=== PATIENT | female | born 1965 | race Caucasian/White ===

== ENCOUNTER 2017-01-20 18:29 | Emergency (ER) | payer OTHER, SELFPAY | END 2017-01-20 20:11 | disposition home or self-care (01) | LOC: ERS 18:29 | DX: B86 Scabies (principal); E66.9 Obesity, unspecified | CPT/HCPCS: 99282 ==

== ENCOUNTER 2019-04-21 19:32 | Inpatient (IN) | payer SELFPAY ==
[2019-04-21] MEDS ORDERED: Acetaminophen 325 MG TAB ONE (20:01)
[2019-04-21] MEDS ORDERED: Bisacodyl 5 MG TAB PO PRN (22:36)
[2019-04-21] MEDS ORDERED: Senokot S 8.6-50 MG TAB PO PRN (22:36)
[2019-04-21 23:40] VITALS: BMI 47.0
[2019-04-21] MEDS: Sodium Chloride 0.9% 1,000 ML IV SCH (23:54)
[2019-04-22] MEDS: Azithromycin 500 MG in Sodium Chloride 0.9% 250 ML 250 ML IVPB SCH ×2 (00:07→22:29)
[2019-04-22] MEDS: cefTRIAXone\\ROCEPHIN 1 GM in Sodium Chloride 0.9% 100 ML IVPB SCH (02:50)
--- NOTE | 2019-04-22 03:10 | HP ---
CHIEF COMPLAINT: Shortness of breath. HISTORY OF PRESENT ILLNESS: The patient is a 54-year-old female with no past medical history except she is significantly obese, who comes in to the hospital with complaints of shortness of breath x1 week. The patient states that last week around Thursday, she did not feel well. Her whole family has been ill. Denies any recent travels. She stated that on Thursday, she did take her grand kids and her son and herself to an Urgent Care, where the children were swabbed and they were positive for metapneumovirus; however, they were not swabbed. The patient was recommended to just do [id number] medications; however, she did not improve, so she came into the hospital for further evaluation. PAST MEDICAL HISTORY: Denies. PAST SURGICAL HISTORY: She has had a cholecystectomy and a hernia repair. FAMILY HISTORY: Father in the age of 60s with heart disease. SOCIAL HISTORY: Denies any alcohol use or any smoking history. No recreational drug use. She is a full code. She lives with her family. REVIEW OF SYSTEMS: All negative except for the ones mentioned above in the HPI. ALLERGIES: SHE IS ALLERGIC TO TRAMADOL. MEDICATIONS: She denies any except for the ones that she has been taking [id number] for the past few days. PHYSICAL EXAMINATION: VITAL SIGNS: As of the following; temperature of 99.8, blood pressure of 115/60, and heart rates in the 99. GENERAL: She is awake, alert, and oriented x3. Does appear in minimal distress. CV: S1 and S2 present. No murmurs, rubs, or gallops. LUNGS: Mild rhonchi heard all over. ABDOMEN: Obese. Bowel sounds present x2. Mild pain upon to her epigastric and her right upper quadrant. EXTREMITIES: No edema. Pedal pulses are present x2. NEUROVASCULAR: There are no focal deficits noted. SKIN: No cuts, lesions, or bruises noted. LABORATORY RESULTS: As of the following; WBCs of 16.1, hemoglobin of 13.7, hematocrit of 43.9, and her platelets are 198. Chemistry; sodium of 134, potassium of 3.8, BUN of 9, and creatinine of 0.84. Her glucose is 244. Her BNP is normal. Her troponin was negative. Her lactic acid initially was 2.9, that improved to 2.0. Her urine indicated no bacteria and no wbc's. She did have a chest x-ray done, that indicated mild infiltrate in the right lung bases. ASSESSMENT AND PLAN: The patient is a 54-year-old female, who presents to the hospital with complaints of shortness of breath. 1. Acute hypoxic respiratory failure. The patient was pretty hypoxic in the ER, her sats went to 86 on room air. She also had a fever of 101 or 102. We will start her on community-acquired pneumonia antibiotics. Her grand kids did test positive for metapneumovirus. She was tested here for influenza and for strep, which both were negative. We will continue supportive care with Andrea alvarado. Also p.hien Nieves for her cough. 2. Leukocytosis, most likely secondary to her underlying pneumonia. 3. Lactic acidosis, resolved. Continue to monitor. 4. Sepsis, ongoing treatment, most likely from her pneumonia. 5. Deep venous thrombosis prophylaxis. Subcu Jeffery. Job ID: [id number]
[2019-04-22] MEDS: Acetaminophen 325 MG TAB PO PRN ×3 (05:47→22:37)
[2019-04-22 06:00] LABS: #Lymphocytes 2.2 thou/uL (1.20-3.40); #Neutrophils 15.7 thou/uL (1.40-6.50); %Eosinophils 0.1 % (0.0-10.0); %Lymphocytes 11.4 % (21.0-51.0); %Monocytes 5.5 % (0.0-10.0); Hemoglobin 11.8 g/dL (12.0-16.0); Mean Corpuscular HGB CONC 34.7 g/dL (32.0-36.0); Mean Corpuscular Hemoglobin 31.1 pg (27.0-31.0); Mean Corpuscular Volume 89.6 fL (78.0-98.0); Mean Platelet Volume 7.8 fL (7.4-10.4); Platelet Count 178 thou/uL (130-400); RBC Distribution Width 12.3 % (11.5-14.5); White Blood Cell (WBC) Count 18.9 thou/uL (4.8-10.8)
[2019-04-22] MEDS ORDERED: Sodium Chloride 0.9% 500 ML IVPB SCH (06:15)
[2019-04-22 06:19] LABS: Anion Gap 12 mmol/L (10-20); BUN (Urea Nitrogen) 6 mg/dL (9.8-20.1); Calc. Creatinine Clearance 175 mL/min (70-130); Calcium 7.7 mg/dL (7.8-10.44); Carbon Dioxide 23 mmol/L (22-29); Chloride 106 mmol/L (98-107); Estimated GFR-MDRD 80; Glucose 151 mg/dL (70-105); Potassium 3.4 mmol/L (3.5-5.1); Sodium 138 mmol/L (136-145)
[2019-04-22] MEDS: Sodium Chloride 0.9% 1,000 ML IV SCH (06:32)
[2019-04-22] MEDS: Enoxaparin Sodium 40 MG/0.4 ML SYRINGE SC SCH (08:49)
[2019-04-22] MEDS: Saccharomyces boulardii 250 MG CAP PO SCH (08:50)
[2019-04-22] MEDS: Famotidine/PF 20 mg/2ml Vial SLOW IVP SCH ×2 (08:51→20:21)
--- NOTE | 2019-04-22 09:46 | PDOC.HOSPP ---
- Subjective Encounter Date: 04/22/19 Encounter Time: 09:46 Subjective: Ms. Jaime was seen today in follow-up of pneumonia. She is still feeling weak, with a cough. She also notes some shortness of breath as well. - Objective Vital Signs & Weight: Vital Signs (12 hours) Temp Pulse Resp BP Pulse Ox 04/22/19 09:12 92 L 04/22/19 08:22 96 19 85 L 04/22/19 08:00 20 L 04/22/19 07:53 98.9 F 99 18 99/57 L 86 L 04/22/19 04:00 100.1 F H 104 H 20 104/65 93 L 04/22/19 00:50 114 H 24 H 04/21/19 23:26 98.6 F 109 H 20 113/75 20 L Weight Weight 282 lb 14.4 oz Result Diagrams: 04/22/19 05:30 04/22/19 05:30 Hospitalist ROS - Medication Medications: Active Medications Generic Name Dose Route Start Last Admin Trade Name Freq PRN Reason Stop Dose Admin Acetaminophen 650 mg 04/21/19 22:36 04/22/19 05:47 Tylenol PO 650 mg Q4H PRN Administration Headache/Fever/Mild Pain (1-3) Albuterol/Ipratropium 3 ml 04/22/19 01:00 04/22/19 08:22 Duoneb NEB 3 ml [id number] LETI Administration Enoxaparin Sodium 40 mg 04/22/19 09:00 04/22/19 08:49 Lovenox SC 40 mg 0900 LETI Administration Famotidine 20 mg 04/22/19 09:00 04/22/19 08:51 Pepcid SLOW IVP 20 mg Q12HR LETI Administration Azithromycin 500 mg/ Sodium 250 mls @ 250 mls/hr 04/21/19 23:00 04/22/19 00: 07 Chloride IVPB 250 mls 2300 LTEI Administration Ceftriaxone Sodium 1 gm/ 100 mls @ 200 mls/hr 04/21/19 23:59 04/22/19 02:50 Sodium Chloride IVPB 100 mls 2359 LETI Administration Sodium Chloride 1,000 mls @ 75 mls/hr 04/21/19 23:30 04/22/19 06:32 Normal Saline 0.9% IV 04/22/19 12:49 Not Given .[id number] LETI Saccharomyces Boulardii 250 mg 04/22/19 09:00 04/22/19 08:50 Florastor PO 250 mg DAILY LETI Administration - Exam Eye: PERRL Heart: RRR, no murmur, no gallops, no rubs, normal peripheral pulses Respiratory: rales, rhonchi, wheezes (Bilateral wheezing and rales at the bases R>L) Gastrointestinal: soft, non-tender, non-distended, normal bowel sounds, no palpable masses Extremities: no cyanosis, no clubbing, 1+ LE edema (+ non-pitting edema in both lower extremities) Hosp A/P (1) Acute respiratory failure with hypoxia Code(s): J96.01 - ACUTE RESPIRATORY FAILURE WITH HYPOXIA Status: Acute (2) Community acquired pneumonia Code(s): J18.9 - PNEUMONIA, UNSPECIFIED ORGANISM Status: Acute - Plan * Acute respiratory failure with hypoxemia- due to community acquired pneumonia - continue Rocephin and Azithromycin * Continue Duonebs as needed
[2019-04-22] MEDS: Benzonatate 100 MG CAP PO PRN (10:10)
[2019-04-22] MEDS ORDERED: Loratadine 10 MG TAB PO SCH (23:45)
[2019-04-23] MEDS: Cepastat Lozenges 1 LOZ PO PRN ×3 (00:02→12:51)
[2019-04-23] MEDS: cefTRIAXone\\ROCEPHIN 1 GM in Sodium Chloride 0.9% 100 ML IVPB SCH (02:12)
--- NOTE | 2019-04-23 09:05 | CT ---
CT chest noncontrast HISTORY: Pneumonia. Infiltrates. COMPARISON: Chest radiograph 04/21/2019. FINDINGS: Large area of dense infiltrate involves each lung, including posterior aspect of the right upper lobe, most of the the right lower lobe, and multifocal infiltrates in the left lower lobe. Air bronchograms within the areas of infiltrate. Calcified granuloma at the posterior aspect of the l eft lower lobe superior segment. Airways are patent. Lack of contrast limits evaluation of the soft tissues. No bulky mediastinal adenopathy. Scattered no nenlarged, nonspecific lymph nodes throughout the mediastinum. Gallbladder surgically absent. Liver diffusely hypodense Ill-defined low density lesion at the inferior aspect of the thyroid isthmus jacky ures up to 2.4 cm oblique diameter on the axial images. IMPRESSION: Multifocal pneumonia involving each lung. Low-density mass at the inferior aspect of the thyroid gland. Please consider dedicated thyroid sonog harsh on an outpatient basis. Hepatosteatosis.
[2019-04-23] MEDS: Saccharomyces boulardii 250 MG CAP PO SCH (09:31)
[2019-04-23] MEDS: Famotidine/PF 20 mg/2ml Vial SLOW IVP SCH (09:31)
[2019-04-23] MEDS: Enoxaparin Sodium 40 MG/0.4 ML SYRINGE SC SCH (09:31)
[2019-04-23] MEDS: Acetaminophen 325 MG TAB PO PRN ×2 (09:31→23:15)
--- NOTE | 2019-04-23 12:57 | PDOC.HOSPP ---
- Subjective Encounter Date: 04/23/19 Encounter Time: 09:00 Subjective: breathing better but still gets short winded easily on minimal exertion no chest pain no h/o travel or exposure to resp illness does not smoke or vape - Objective Vital Signs & Weight: Vital Signs (12 hours) Temp Pulse Resp BP Pulse Ox 04/23/19 08:26 98.0 F 79 16 133/84 98 04/23/19 06:40 91 L 04/23/19 06:39 95 18 92 L 04/23/19 00:57 90 20 93 L Weight Admit Weight 282 lb 14.4 oz Weight 282 lb 14.4 oz Result Diagrams: 04/22/19 05:30 04/22/19 05:30 Hospitalist ROS - Medication Medications: Active Medications Generic Name Dose Route Start Last Admin Trade Name Freq PRN Reason Stop Dose Admin Acetaminophen 650 mg 04/21/19 22:36 04/23/19 09:31 Tylenol PO 650 mg Q4H PRN Administration Headache/Fever/Mild Pain (1-3) Albuterol/Ipratropium 3 ml 04/22/19 01:00 04/23/19 06:39 Duoneb NEB 3 ml [id number] LETI Administration Benzonatate 100 mg 04/21/19 23:29 04/22/19 10:10 Tessalon PO 100 mg TIDPRN PRN Administration Cough Enoxaparin Sodium 40 mg 04/22/19 09:00 04/23/19 09:31 Lovenox SC 40 mg 0900 LETI Administration Azithromycin 500 mg/ Sodium 250 mls @ 250 mls/hr 04/21/19 23:00 04/22/19 22: 29 Chloride IVPB 250 mls 2300 LETI Administration Ceftriaxone Sodium 1 gm/ 100 mls @ 200 mls/hr 04/21/19 23:59 04/23/19 02:12 Sodium Chloride IVPB 100 mls 2359 LETI Administration Saccharomyces Boulardii 250 mg 04/22/19 09:00 04/23/19 09:31 Florastor PO 250 mg DAILY LETI Administration Throat Lozenges 1 nigel 04/22/19 23:30 04/23/19 12:51 Cepastat Lozenges PO 1 nigel Q2H PRN Administration Sore Throat - Exam General Appearance: awake alert Eye: PERRL, anicteric sclera ENT: no oropharyngeal lesions, moist mucosa Neck: supple, no JVD Heart: RRR, no murmur Respiratory: no wheezes, no rales, rhonchi Gastrointestinal: soft, non-tender, non-distended, normal bowel sounds Extremities: no cyanosis, no edema Neurological: cranial nerve grossly intact, no focal deficits Psychiatric: normal affect, A&O x 3 Hosp A/P (1) Community acquired pneumonia Code(s): J18.9 - PNEUMONIA, UNSPECIFIED ORGANISM Status: Acute (2) Acute respiratory failure with hypoxia Code(s): J96.01 - ACUTE RESPIRATORY FAILURE WITH HYPOXIA Status: Acute (3) Morbid obesity with BMI of 45.0-49.9, adult Code(s): E66.01 - MORBID (SEVERE) OBESITY DUE TO EXCESS CALORIES; Z68.42 - BODY MASS INDEX (BMI) 45.0-49.9, ADULT Status: Chronic (4) Glucose intolerance Code(s): E74.39 - OTHER DISORDERS OF INTESTINAL CARBOHYDRATE ABSORPTION Status : Suspected - Plan is on zithromax and ceftriaxone, nebs CT chest results noted, viral pcr likely has underlying sleep apnea/obesity hypovent syndrome labs in am, pulm consultation hiv test in view of b/l infiltrates, i.spirometry, hemoglobin A1C
[2019-04-23 13:45] LABS: Hemoglobin A1c 6.6 % (4.0-6.0)
[2019-04-23 14:25] LABS: HIV (1/2) Antibody/Antigen Non-Reactive (NonReactive)
[2019-04-23] MEDS: Benzonatate 100 MG CAP PO PRN (23:15)
[2019-04-23] MEDS: Azithromycin 500 MG in Sodium Chloride 0.9% 250 ML 250 ML IVPB SCH (23:16)
[2019-04-24] MEDS: cefTRIAXone\\ROCEPHIN 1 GM in Sodium Chloride 0.9% 100 ML IVPB SCH (00:40)
[2019-04-24 05:36] LABS: #Basophils 0.1 thou/uL (0.0-0.2); #Eosinphils 0.1 thou/uL (0.0-0.7); #Monocytes 0.9 thou/uL (0.11-0.59); #Neutrophils 7.8 thou/uL (1.40-6.50); %Basophils 0.4 % (0.0-1.0); %Eosinophils 0.6 % (0.0-10.0); %Lymphocytes 25.3 % (21.0-51.0); %Monocytes 7.7 % (0.0-10.0); Hemoglobin 11.6 g/dL (12.0-16.0); Mean Corpuscular HGB CONC 34.1 g/dL (32.0-36.0); Mean Corpuscular Hemoglobin 30.3 pg (27.0-31.0); Mean Platelet Volume 7.6 fL (7.4-10.4); Platelet Count 192 thou/uL (130-400); RBC Distribution Width 12.3 % (11.5-14.5); Red Blood Cell (RBC) Count 3.83 mill/uL (4.20-5.40); White Blood Cell (WBC) Count 11.9 thou/uL (4.8-10.8)
[2019-04-24 05:59] LABS: ALT (SGPT) 19 U/L (8-55); AST (SGOT) 19 U/L (5-34); Albumin 3.1 g/dL (3.5-5.0); Alkaline Phosphatase 54 U/L (40-110); Anion Gap 10 mmol/L (10-20); BUN (Urea Nitrogen) 4 mg/dL (9.8-20.1); Bilirubin, Total 0.7 mg/dL (0.2-1.2); Calc. Creatinine Clearance 202 mL/min (70-130); Calcium 8.2 mg/dL (7.8-10.44); Carbon Dioxide 28 mmol/L (22-29); Chloride 105 mmol/L (98-107); Estimated GFR-MDRD Greater than 90; Globulin 3.1 g/dL (2.4-3.5); Glucose 115 mg/dL (70-105); Potassium 3.1 mmol/L (3.5-5.1); Protein, Total 6.2 g/dL (6.0-8.3); Sodium 140 mmol/L (136-145)
[2019-04-24] MEDS: Enoxaparin Sodium 40 MG/0.4 ML SYRINGE SC SCH (07:41)
[2019-04-24] MEDS: Saccharomyces boulardii 250 MG CAP PO SCH (07:41)
[2019-04-24 12:30] VITALS: BP 147/84; TEMP 98.5
--- NOTE | 2019-04-24 14:05 | DIS ---
DATE OF ADMISSION: 04/21/2019 DATE OF DISCHARGE: 04/24/2019 DISCHARGE DISPOSITION: To home. PRIMARY DISCHARGE DIAGNOSES: Bilateral patchy multifocal infiltrate, acute respiratory failure with hypoxia, morbid obesity, and likely early diabetes. PROCEDURES DONE DURING HOSPITALIZATION: Nasopharyngeal swab for respiratory viral panel PCR was positive for human metapneumovirus. CT chest showed multifocal pneumonia in bilateral lungs. Blood cultures x2, no growth. Group A Streptococcus throat swab screen was negative. DISCHARGE MEDICATIONS: 1. Omnicef 300 mg p.o. twice daily for 6 days. 2. Medrol Dosepak to use as directed. 3. Protonix 40 mg p.o. daily. 4. DuoNeb 4 times daily for 10 days. 5. Tessalon Perles 100 mg p.o. 3 times daily for 10 days. ALLERGIES: ALLERGIC TO ULTRAM. DISCHARGE PLAN: The patient to follow up with her primary care physician in 1 week. BRIEF COURSE DURING HOSPITALIZATION: The patient initially came in with complaints of shortness of breath. This is ongoing for almost a week. Also, one of her grand kids had metapneumovirus being positive. Ms. Addison Fernandez was also morbidly obese with BMI of nearly 47. In view of this history, the patient was admitted to medical floor. She was placed on broad-spectrum antibiotics and a viral PCR was obtained. Ms. Jaime was again positive for human metapneumovirus likely, she got this from a grand kid, who was positive for the same. She has had patchy infiltrates in both lungs. In view of her initial presentation with hypoxia, the patient was given prescriptions for Omnicef as well along with nebulization treatment for a total of 10 days. She has been advised not to work for another 10 days and to isolate herself in the house. She has not had any other exposures. Prior to discharge, she is ambulating and eating well. She is speaking in complete sentences. Her saturations are 92% on room air. She is wanting to go home today. Please note, I have seen and examined the patient on the day of discharge. Job ID: [id number]
--- NOTE | 2019-04-26 04:48 | PQF ---
DATE: 04/26/2019 ATTN: DIPIKA MUELLER MD Please exercise your independent, professional judgment in responding to the clarification form. Clinical indicators are provided on the bottom of this form for your review Please check appropriate box(s) to clarify if the following diagnosis has been ruled in or ruled out: SEPSIS [ x ] Ruled in diagnosis [ ] Continue to treat [ x ] Resolved [ ] Ruled out diagnosis [ ] Cannot rule out diagnosis [ ] Other diagnosis [ ] Unable to determine For continuity of documentation, please document condition throughout progress notes and discharge summary. Thank You. CLINICAL INDICATORS - SIGNS / SYMPTOMS / LABS -Sepsis,ongoing treatment,most likely from her pneumonia- H and P, 04/20, Yamilet Goncalves MD - She had Fever-102- H and P, 04/20, Yamilet Goncalves MD - WBC-16.1,Lactic acid-2.9 -H and P, 04/20, Yamilet Goncalves MD - Blood cultures x2,no growth- DS, 04/23, DIPIKA MUELLER MD - Group A Streptococcus throat swab screen was negative- DS, 04/23, DIPIKA MUELLER MD RISK FACTORS - Acute hypoxic respiratory failure-H and P, 04/20, Yamilet Goncalves MD - Lactic acidosis- H and P, 04/20, Yamilet Goncalves MD TREATMENTS - Rocephin.IV- APR, 04/20 - Zithromax.IV- APR, 04/20 (This form is maintained as a part of the permanent medical record) 2014 [employer] All Rights Reserved [email or web address]
== END 2019-04-24 12:32 | disposition home or self-care (01) | DRG 871 ==
LOC: ERS 19:32 → T4-B 22:24
PROVIDERS: ADMIT Emergency Medicine; ATTEND Emergency Medicine
DX: A41.89 Other specified sepsis (principal); J12.3 Human metapneumovirus pneumonia; J96.01 Acute respiratory failure with hypoxia; Z68.42 Body mass index [BMI] 45.0-49.9, adult; E87.2 Acidosis; E66.01 Morbid (severe) obesity due to excess calories; B97.81 Human metapneumovirus as the cause of diseases classified elsewhere; E11.9 Type 2 diabetes mellitus without complications; F41.9 Anxiety disorder, unspecified; Z88.8 Allergy status to other drugs, medicaments and biological substances; Z90.49 Acquired absence of other specified parts of digestive tract
CPT/HCPCS: 36415; 71250; 80048; 80053; 83036; 85025; 87389; 87633; 94640; 96365; 96366; J0456; J0696; J1650; J3370; J3490; J7050; J7620; S0028

== ENCOUNTER 2022-01-16 18:54 | Inpatient (IN) | payer OTHER ==
[2022-01-16 21:30] VITALS: BMI 45.9
[2022-01-16 22:10] LABS: Troponin I Less than 0.010 ng/mL (< 0.028)
[2022-01-16] MEDS ORDERED: Bisacodyl 10 MG SUPP PR PRN (22:34)
[2022-01-16] MEDS ORDERED: Ondansetron ODT 4 MG TAB PO PRN (22:34)
[2022-01-16] MEDS ORDERED: Nitroglycerin 0.4 MG TAB (25 Tab Bottle) SL PRN (22:34)
[2022-01-16] MEDS ORDERED: Ondansetron PF 4 MG/2 ML Vial IVP PRN (22:34)
[2022-01-16] MEDS ORDERED: Acetaminophen 650 MG Suppository PR PRN (22:34)
[2022-01-16] MEDS ORDERED: Senokot S 8.6-50 MG TAB PO PRN (22:34)
[2022-01-16] MEDS ORDERED: Guaifenesin DM 100-10/5 ML UDCUP PO PRN (22:34)
[2022-01-16] MEDS ORDERED: Bisacodyl 5 MG TAB PO PRN (22:34)
[2022-01-16] MEDS: Acetaminophen 325 MG TAB PO PRN (23:52)
[2022-01-17 01:23] LABS: Troponin I Less than 0.010 ng/mL (< 0.028)
[2022-01-17] MEDS ORDERED: Nitrofurantoin Monohyd/M-Cryst 100 MG CAP PO SCH ×2 (01:30→09:00)
[2022-01-17 05:15] LABS: #Eosinphils 0.3 thou/uL (0.0-0.7); #Lymphocytes 1.8 thou/uL (1.20-3.40); #Monocytes 0.7 thou/uL (0.11-0.59); #Neutrophils 5.5 thou/uL (1.40-6.50); %Basophils 0.2 % (0.0-1.0); %Eosinophils 3.9 % (0.0-10.0); %Lymphocytes 21.1 % (21.0-51.0); %Monocytes 8.6 % (0.0-10.0); %Neutrophils 66.2 % (42.0-75.0); Hemoglobin 13.2 g/dL (12.0-16.0); Mean Corpuscular HGB CONC 33.3 g/dL (32.0-36.0); Mean Corpuscular Hemoglobin 29.8 pg (27.0-31.0); Mean Corpuscular Volume 89.7 fl (78.0-98.0); Mean Platelet Volume 7.6 fL (7.4-10.4); Platelet Count 242 10x3/uL (130-400); RBC Distribution Width 12.2 % (11.5-14.5); Red Blood Cell (RBC) Count 4.43 mill/uL (4.20-5.40); White Blood Cell (WBC) Count 8.4 10x3/uL (4.8-10.8)
[2022-01-17 05:35] LABS: Hemoglobin A1c 6.7 % (4.0-6.0)
[2022-01-17 05:40] LABS: Anion Gap 15 mmol/L (10-20); BUN (Urea Nitrogen) 15 mg/dL (9.8-20.1); Calc. Creatinine Clearance 157 mL/min (70-130); Carbon Dioxide 24 mmol/L (22-29); Cardiac Risk 7.1 (Less than 4.5); Chloride 103 mmol/L (98-107); Cholesterol 220 mg/dl (< 200 Desired); Estimated GFR 87; Glucose 147 mg/dL (70-105); HDL Cholesterol 31 mg/dL (>60 Neg Risk); Magnesium 1.9 mg/dL (1.6-2.6); Potassium 3.9 mmol/L (3.5-5.1); Sodium 138 mmol/L (136-145); Triglycerides 596 mg/dL (Less than 150)
[2022-01-17 05:44] LABS: Troponin I Less than 0.010 ng/mL (< 0.028)
[2022-01-17] MEDS ORDERED: Atorvastatin Calcium 40 MG TAB PO SCH (08:45)
[2022-01-17] MEDS: Aspirin Chewable 81 MG TAB PO SCH (09:48)
[2022-01-17] MEDS: Carvedilol 3.125 MG TAB PO SCH ×3 (09:49→18:45)
[2022-01-17] MEDS: Nitrofurantoin Monohyd/M-Cryst 100 MG CAP PO SCH ×2 (09:49→20:42)
[2022-01-17] MEDS ORDERED: Regadenoson 0.4 MG/5 ML SYRINGE ONE (10:03)
[2022-01-17 13:54] LABS: Magnesium 1.9 mg/dL (1.6-2.6)
[2022-01-17] MEDS: Acetaminophen 325 MG TAB PO PRN (17:37)
[2022-01-18 05:17] LABS: #Basophils 0.1 thou/uL (0.0-0.2); #Eosinphils 0.3 thou/uL (0.0-0.7); #Monocytes 0.7 thou/uL (0.11-0.59); #Neutrophils 4.9 thou/uL (1.40-6.50); %Basophils 0.9 % (0.0-1.0); %Eosinophils 4.1 % (0.0-10.0); Hemoglobin 13.1 g/dL (12.0-16.0); Mean Corpuscular HGB CONC 33.4 g/dL (32.0-36.0); Mean Corpuscular Hemoglobin 30.3 pg (27.0-31.0); Mean Corpuscular Volume 90.9 fl (78.0-98.0); Mean Platelet Volume 7.9 fL (7.4-10.4); Platelet Count 230 10x3/uL (130-400); RBC Distribution Width 12.3 % (11.5-14.5); Red Blood Cell (RBC) Count 4.31 mill/uL (4.20-5.40); White Blood Cell (WBC) Count 8.1 10x3/uL (4.8-10.8)
[2022-01-18 05:23] LABS: Anion Gap 12 mmol/L (10-20); BUN (Urea Nitrogen) 13 mg/dL (9.8-20.1); Calc. Creatinine Clearance 170 mL/min (70-130); Carbon Dioxide 25 mmol/L (22-29); Chloride 105 mmol/L (98-107); Estimated GFR 95; Glucose 161 mg/dL (70-105); Potassium 3.9 mmol/L (3.5-5.1); Sodium 138 mmol/L (136-145)
[2022-01-18] MEDS: Acetaminophen 325 MG TAB PO PRN (07:47)
[2022-01-18] MEDS: Carvedilol 3.125 MG TAB PO SCH ×2 (10:25→17:18)
[2022-01-18] MEDS: Nitrofurantoin Monohyd/M-Cryst 100 MG CAP PO SCH (10:25)
[2022-01-18] MEDS: Aspirin Chewable 81 MG TAB PO SCH (10:26)
[2022-01-18 16:24] VITALS: BP 136/73; TEMP 97.8
[2022-01-18] MEDS ORDERED: Atorvastatin Calcium 40 MG TAB PO SCH (21:00)
== END 2022-01-18 17:24 | disposition home or self-care (01) | DRG 392 ==
LOC: 2SW 18:54 → OBSVTOIN 01-17 15:33
PROVIDERS: ADMIT Student in an Organized Health Care Education/Training Program; ATTEND Family Medicine
DX: K21.9 Gastro-esophageal reflux disease without esophagitis (principal); N30.01 Acute cystitis with hematuria; Z68.42 Body mass index [BMI] 45.0-49.9, adult; E66.9 Obesity, unspecified; E78.00 Pure hypercholesterolemia, unspecified; Z20.822 Contact with and (suspected) exposure to COVID-19; G62.9 Polyneuropathy, unspecified; E78.1 Pure hyperglyceridemia; E11.9 Type 2 diabetes mellitus without complications; Z82.49 Family history of ischemic heart disease and other diseases of the circulatory system; Z88.6 Allergy status to analgesic agent; Z79.899 Other long term (current) drug therapy; Z90.49 Acquired absence of other specified parts of digestive tract; Z98.890 Other specified postprocedural states; Z80.0 Family history of malignant neoplasm of digestive organs
CPT/HCPCS: 36415; 78452; 80048; 80061; 83036; 83735; 84484; 85025; 87086; 93017; 93306; 94760; A9500; G0378; J2785; U0003; U0005